=== PATIENT | male | born 1980 | race Caucasian/White ===

== ENCOUNTER 2019-06-10 19:43 | Inpatient (IN) | payer OTHER ==
[~2019-06-10 19:43] MED LIST: Iopamidol-370 76% 500 ML 1 ML ONE
--- NOTE | 2019-06-10 20:22 | CT ---
CT BRAIN WITHOUT CONTRAST: 06/10/19 HISTORY: Stroke alert. Left sided weakness. COMPARISON: None. FINDINGS: There is no acute hemorrhage or infarct. No midline shift or mass effect. Ventricular size and extra- axial CSF spaces are normal. Calvarium is intact. Paranasal sinuses and mastoids are clear. IMPRESSION: No acute intracranial abnormality. Code BRAVO - Dr. Calabrese at 8:15 p.m. POS: HOME
--- NOTE | 2019-06-10 20:44 | CT ---
CT ANGIOGRAM HEAD WITH CONTRAST CT ANGIOGRAM NECK WITH CONTRAST 06/10/19 HISTORY: Stroke. Left sided weakness and facial paralysis. COMPARISON: Reference is made to a CT of the brain same day. FINDINGS: The lung apices are clear. Transverse aorta is normal. No acute osseous abnormality of the cervical spine. Mild degenerative disc space disease at C4-5 and C5-6. The right vertebral artery is patent. The right vertebral artery is dominant. The left vertebral artery is patent. Basilar artery is patent. Right common carotid artery is patent. Internal carotid artery is patent. No hemodynamically signific ant stenosis per NASCET criteria. The left common carotid artery is patent. The internal carotid artery is patent. No hemodynamically s ignificant stenosis per NASCET criteria. The [place] is patent without stenosis, thrombosis nor aneurysm formation. The superior sagittal sinus is patent. The inferior sagittal sinus is patent. Transverse sinuses are patent. IMPRESSION: Normal CT angiogram of the head and neck. Code BRAVO Calabrese notified of the findings via telephone at 8:30 p.m. POS: HOME
--- NOTE | 2019-06-10 20:45 | RAD ---
CHEST ONE VIEW: 06/10/19 HISTORY: Chest pain. COMPARISON: None. FINDINGS: Lungs are clear. No pneumothorax or effusion. Cardiac silhouette and mediastinal contours are within normal limits. No acute osseous abnormality. IMPRESSION: No acute intrathoracic abnormality. POS: HOME
[2019-06-10 21:04] LABS: #Monocytes 0.4 thou/uL (0.11-0.59); #Neutrophils 2.4 thou/uL (1.40-6.50); %Basophils 0.5 % (0.0-1.0); %Eosinophils 0.5 % (0.0-10.0); %Lymphocytes 26.2 % (21.0-51.0); %Monocytes 10.4 % (0.0-10.0); %Neutrophils 62.4 % (42.0-75.0); Hemoglobin 14.9 g/dL (14.0-18.0); Mean Corpuscular HGB CONC 32.5 g/dL (32.0-36.0); Mean Corpuscular Hemoglobin 29.8 pg (27.0-31.0); Mean Corpuscular Volume 91.6 fL (78.0-98.0); Mean Platelet Volume 8.6 fL (7.4-10.4); Platelet Count 185 thou/uL (130-400); RBC Distribution Width 11.7 % (11.5-14.5); Red Blood Cell (RBC) Count 5.01 mill/uL (4.70-6.10); White Blood Cell (WBC) Count 3.9 thou/uL (4.8-10.8)
[2019-06-10 21:10] LABS: PTT 28.6 SEC (22.9-36.1); Prothrombin Time 13.1 sec (12.0-14.7)
[2019-06-10 21:26] LABS: ALT (SGPT) 189 U/L (8-55); AST (SGOT) 83 U/L (5-34); Albumin 4.2 g/dL (3.5-5.0); Alkaline Phosphatase 62 U/L (40-110); Anion Gap 14 mmol/L (10-20); BUN (Urea Nitrogen) 13 mg/dL (8.9-20.6); Bilirubin, Total 0.3 mg/dL (0.2-1.2); Calc. Creatinine Clearance 0 mL/min (70-130); Calcium 8.9 mg/dL (7.8-10.44); Carbon Dioxide 23 mmol/L (22-29); Chloride 104 mmol/L (98-107); Estimated GFR-MDRD Greater than 90; Globulin 3.4 g/dL (2.4-3.5); Glucose 94 mg/dL (70-105); Potassium 4.3 mmol/L (3.5-5.1); Protein, Total 7.6 g/dL (6.0-8.3); Sodium 137 mmol/L (136-145)
--- NOTE | 2019-06-10 21:44 | PDOC.HHP ---
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 He reports fall today with no LOC or head trauma after sided weakness became exaerbated, he was brought to ED, symptoms reportedly developed about 3 hours before presentation. In ED, given 325mg ASA, nitroglycerine, also given tPA for NIHSS of 6 and after reviewing risks and benefits with patient. patient to be admitted to CCU for observation after tPA and for covid rule out given other symptoms above. CT and CTA head performed with no signs of acute processes. ED Course: VITAL SIGNS SunJune 10, 2019 19:54 JP Helton Cory BP: 121/73 Pulse: 70 Resp: 16 Temp: 97.7 (Oral) Pain: 4 O2 sat: 97 on (Room Air) Time: 06/10/2019 19:54. Hospitalist ROS - Review of Systems Constitutional: reports: fever, chills, sweats, weakness Eyes: denies: pain, vision change ENT: denies: ear pain, mouth pain, mouth swelling, throat pain Respiratory: reports: cough. denies: shortness of breath, pleuritic pain Cardiovascular: denies: chest pain, palpitations, orthopnea Gastrointestinal: denies: nausea, vomiting, abdominal pain Genitourinary: denies: dysuria, frequency Musculoskeletal: denies: neck pain, shoulder pain, arm pain, back pain Skin: denies: rash, lesions Neurological: reports: weakness, numbness Other: L sided face and body weakness and numbness Hospitalist History - Past Medical History Other Medical History: seizure HCV multiple TIA - Past Surgical History Past Surgical History: reports: no pertinent history Other Surgical History: hernia, tonsillectomy - Family History Family History: reports: no pertinent history - Social History Smoking Status: Never smoker Alcohol: reports: None Drugs: reports: none - Exam General Appearance: NAD, awake alert Eye: PERRL, anicteric sclera ENT: normocephalic atraumatic, no oropharyngeal lesions, moist mucosa Neck: supple, symmetric, no JVD, no thyromegaly, no lymphadenopathy, no carotid bruit Heart: RRR, no murmur, no gallops, no rubs, normal peripheral pulses Respiratory: CTAB, no wheezes, no rales, no ronchi, normal chest expansion, no tachypnea, normal percussion Gastrointestinal: soft, non-tender, non-distended, normal bowel sounds, no palpable masses, no hepatomegaly, no splenomegaly, no bruit Extremities: no cyanosis, no clubbing, no edema Skin: normal turgor, no lesions, no rashes Neurological: cranial nerve grossly intact Neurological - other findings: L sided face, body numbness and weakness, 0/5 in all L sided 5/5 others Musculoskeletal: normal tone, normal strength, no muscle wasting Psychiatric: normal affect, normal behavior, A&O x 3 Hospitalist Results - Labs Result Diagrams: 06/10/19 20:49 06/10/19 20:49 Lab results: WBC 3.9 thou/uL (4.8-10.8) L 06/10/19 20:49 Hgb 14.9 g/dL (14.0-18.0) 06/10/19 20:49 Hct 45.9 % (42.0-52.0) 06/10/19 20:49 MCV 91.6 fL (78.0-98.0) 06/10/19 20:49 Plt Count 185 thou/uL (130-400) 06/10/19 20:49 Neutrophils % 62.4 % (42.0-75.0) 06/10/19 20:49 Sodium 137 mmol/L (136-145) 06/10/19 20:49 Potassium 4.3 mmol/L (3.5-5.1) 06/10/19 20:49 Chloride 104 mmol/L (98-107) 06/10/19 20:49 Carbon Dioxide 23 mmol/L (22-29) 06/10/19 20:49 BUN 13 mg/dL (8.9-20.6) 06/10/19 20:49 Creatinine 0.89 mg/dL (0.7-1.3) 06/10/19 20:49 Glucose 94 mg/dL (70-105) 06/10/19 20:49 Lactic Acid 1.2 mmol/L (0.5-2.2) 06/10/19 20:49 Calcium 8.9 mg/dL (7.8-10.44) 06/10/19 20:49 Total Bilirubin 0.3 mg/dL (0.2-1.2) 06/10/19 20:49 AST 83 U/L (5-34) H 06/10/19 20:49 ALT 189 U/L (8-55) H 06/10/19 20:49 Alkaline Phosphatase 62 U/L (40-110) 06/10/19 20:49 Troponin I 0.031 ng/mL (< 0.028) H 06/10/19 20:49 Serum Total Protein 7.6 g/dL (6.0-8.3) 06/10/19 20:49 Albumin 4.2 g/dL (3.5-5.0) 06/10/19 20:49 - EKG Interpretation EKG: NSR rate [address] changes Hospitalist H&P A/P - Plan Plan: 39M with PMH TIA, HCV admitted for: # acute ischemic stroke - NIHSS 6 on arrival, had previouslstroke with same symptoms L sided weakness and numbness 3 years ago but had recovered, now presents with viremia symptoms and L sided weakness and numbness, got tPA in ED now with minimal improvement in face, can open eye etc, but still 0/5 in L sided weakness and numbness, will admit to CCU for close observation - admit to CCU - post stroke order set - MRI, statin, asa - consult neurology, - TTE - stroke team consult # viremia, fever, chills, body aches - covid exposure at unit, suspect will be covid positive but test is pending - follow covid test - full precautions # elevated troponin - mild, workup as above, trend troponins, maybe due to viral event or stroke # history of HCV, TIA - noted DVT ppx - as allowed by post tpa sed GI ppx full code
[2019-06-10 21:46] LABS: CKMB 0.6 ng/mL (0-6.6)
[2019-06-10] MEDS ORDERED: Ondansetron PF 4 MG/2 ML Vial IVP PRN (21:52)
[2019-06-10] MEDS ORDERED: Promethazine HCl 12.5 MG in Sodium Chloride 0.9% 50 ML IVPB PRN (21:52)
[2019-06-10] MEDS ORDERED: Labetalol HCl 100 MG/20 ML VIAL SLOW IVP PRN (22:27)
[2019-06-10] MEDS ORDERED: Docusate 100 MG CAP PO PRN (22:27)
[2019-06-10] MEDS ORDERED: hydrALAZINE 20 MG/ML VIAL SLOW IVP PRN (22:27)
[2019-06-10] MEDS ORDERED: niCARdipine 25 MG in Sodium Chloride 0.9% 250 ML 240 ML IVPB PRN (22:27)
[2019-06-10] MEDS ORDERED: Mag-Al 1200 mg/1200 mg/30 ML UDCUP PO PRN (22:27)
[2019-06-10] MEDS ORDERED: Milk Of Magnesia 30 ML UDCUP PO PRN (22:27)
[2019-06-10] MEDS: Sodium Chloride 0.9% 1,000 ML IV SCH (22:57)
[2019-06-10] MEDS: Communication Order-Pharmacy FS SCH (23:51)
[2019-06-11] MEDS: Acetaminophen 325 MG TAB PO PRN ×2 (04:45→20:28)
--- NOTE | 2019-06-11 08:52 | CON ---
DATE OF CONSULTATION: 06/11/2019 REASON FOR CONSULTATION: ICU management. HISTORY OF PRESENT ILLNESS: This is a 39-year-old, who was brought to the hospital with left-sided weakness, left-sided facial weakness, and left leg weakness. He was actually given tPA for supposed stroke. He says that he began having an intense ammonia smell in his nose few days ago, now cannot smell and cannot taste. He is concerned that he might have a coronavirus. He has not had any documented fever, but says he felt like he was cold [facility] a couple of days ago. Apparently, COVID-19 has been noted in his penitent[facility] unit. PAST MEDICAL HISTORY: 1. Stroke. 2. Seizure disorder. 3. Hepatitis C. PAST SURGICAL HISTORY: Hernia repair and tonsillectomy. FAMILY MEDICAL HISTORY: Unremarkable. SOCIAL HISTORY: Does not smoke. Does not consume alcohol. Does not use illicit drugs. REVIEW OF SYSTEMS: Twelve-point review of systems is otherwise negative. PHYSICAL EXAMINATION: VITAL SIGNS: Temperature 97, pulse 63, blood pressure 113/70, and O2 saturation 96%. A 24-hour intake 421 and output 575. GENERAL: He is awake, alert, and in no distress. He talks without any limitations. HEENT: Pupils are reactive. Sclerae are anicteric. Oropharynx clear. Smiles appropriately. No noted facial weakness. NECK: No adenopathy or JVD. LUNGS: Clear to auscultation. No wheezing or rhonchi. CARDIAC: S1 and S2. Regular without audible murmur. ABDOMEN: Soft and nontender to palpation. EXTREMITIES: No clubbing, cyanosis, or edema. NEUROLOGIC: He has difficulty moving his left arm and left leg, very difficult to tell how hard he is actually trying during this examination process. LABORATORY DATA: His chest x-ray shows no mass, effusion, or infiltrate. Labs; sodium 137, potassium 4.3, chloride 104, CO2 of 23, BUN 13, creatinine 0.8, AST 83, and ALT 189. Troponin 0.031. INR 1.0 and PTT 28.6. White blood cell count 3.9, hematocrit 45.9, and platelet count 185. ASSESSMENT: 1. Presumed stroke. 2. Rule out COVID-19 infection. 3. Chronic hepatitis C. 4. Hypertension. PLAN: 1. The patient will be watched in the ICU for 24 hours given he just received tPA. 2. If his COVID test comes back negative, then respiratory isolation will be discontinued. 3. Hypertension management and stroke management per stroke team. Job ID: [id number]
[2019-06-11] MEDS ORDERED: Atorvastatin Calcium 40 MG TAB PO SCH (09:00)
[2019-06-11] MEDS: Polyethylene Glycol 3350 17 GM Packet PO SCH (09:18)
[2019-06-11] MEDS: levETIRAcetam 500 MG TAB PO SCH ×2 (09:18→20:00)
--- NOTE | 2019-06-11 11:15 | PDOC.HOSPP ---
- Subjective Encounter Date: 06/11/19 Encounter Time: 10:30 Subjective: Patient seen and examined. No overnight events, pt has left side weakness - Objective Vital Signs & Weight: Vital Signs (12 hours) Temp Pulse Ox 06/11/19 08:00 97 F L 100 06/11/19 07:00 97 F L 06/11/19 04:00 97.6 F Weight Weight 217 lb 9.54 oz Most Recent Monitor Data Heart Rate from ECG 51 NIBP 113/73 NIBP BP-Mean 86 Respiration from ECG 12 SpO2 97 I&O: 06/10/19 06/11/19 06/12/19 06:59 06:59 06:59 Intake Total 421 120 Output Total 575 Balance -154 120 Result Diagrams: 06/10/19 20:49 06/10/19 20:49 Additional Labs: Accuchecks 06/10/19 20:08 POC Glucose 92 Radiology Reviewed by me: Yes EKG Reviewed by me: Yes Hospitalist ROS - Review of Systems Eyes: denies: pain, vision change, conjunctivae inflammation, eyelid inflammation, redness, other ENT: denies: ear pain, ear discharge, nose pain, nose discharge, nose congestion , mouth pain, mouth swelling, throat pain, throat swelling, other Respiratory: denies: cough, dry, shortness of breath, hemoptysis, SOB with excertion, pleuritic pain, sputum, wheezing, other Cardiovascular: denies: chest pain, palpitations, orthopnea, paroxysmal noc. dyspnea, edema, light headedness, other Gastrointestinal: denies: nausea, vomiting, abdominal pain, diarrhea, constipation, melena, hematochezia, other Genitourinary: denies: dysuria, frequency, incontinence, hematuria, retention, other Musculoskeletal: denies: neck pain, shoulder pain, arm pain, back pain, hand pain, leg pain, foot pain, other Skin: denies: rash, lesions, sandra, bruising, other Neurological: reports: weakness. denies: numbness, incoordination, change in speech, confusion, seizures, other - Medication Medications: Active Medications Generic Name Dose Route Start Last Admin Trade Name Freq PRN Reason Stop Dose Admin Acetaminophen 650 mg 06/10/19 22:27 06/11/19 04:45 Tylenol PO 650 mg Q6H PRN Administration Headache/Fever/Mild Pain (1-3) Sodium Chloride 1,000 mls @ 50 mls/hr 06/10/19 22:30 06/10/19 22:57 Normal Saline 0.9% IV 1,000 mls .Q20H YULIET Administration Levetiracetam 1,500 mg 06/11/19 09:00 06/11/19 09:18 Keppra PO 1,500 mg BID YULIET Administration Miscellaneous Information 1 each 06/10/19 22:27 06/10/19 23:51 Communication Order-Pharmacy FS 06/11/19 22:28 Not Given NOW YULIET Pantoprazole Sodium 40 mg 06/11/19 09:00 06/11/19 09:18 Protonix PO 40 mg DAILY YULIET Administration Polyethylene Glycol 17 gm 06/11/19 09:00 06/11/19 09:18 Miralax PO 17 gm DAILY YULIET Administration - Exam General Appearance: NAD, awake alert Eye: PERRL, anicteric sclera ENT: normocephalic atraumatic, no oropharyngeal lesions Neck: supple, symmetric, no JVD, no thyromegaly Heart: RRR, no murmur, no gallops, no rubs Respiratory: CTAB, no wheezes, no rales, no ronchi Gastrointestinal: soft, non-tender, non-distended, normal bowel sounds Extremities: no cyanosis, no clubbing, no edema Skin: normal turgor, no lesions Neurological: hemiplegia Neurological - other findings: left side weakness noted both upper and lower limb Musculoskeletal: normal tone, normal strength Psychiatric: normal affect, normal behavior Hosp A/P (1) CVA (cerebral vascular accident) Code(s): I63.9 - CEREBRAL INFARCTION, UNSPECIFIED Status: Acute Qualifiers: Precerebral and cerebral artery: middle cerebral artery Laterality of affected vessel: right (2) Hypertension Code(s): I10 - ESSENTIAL (PRIMARY) HYPERTENSION Status: Chronic Qualifiers: Hypertension type: essential hypertension Qualified Code(s): I10 - Essential (primary) hypertension (3) Chronic hepatitis C Code(s): B18.2 - CHRONIC VIRAL HEPATITIS C Status: Chronic Qualifiers: Hepatic coma status: without hepatic coma Qualified Code(s): B18.2 - Chronic viral hepatitis C (4) Abnormal LFTs Code(s): R94.5 - ABNORMAL RESULTS OF LIVER FUNCTION STUDIES Status: Chronic - Plan old records reviewed/req rule out covid-19 observe in ICU for 2 hours post Tpa Neurology has been consulted stroke team MRI and echo medication reviewed and continue to provide symptomatic care
[2019-06-11] MEDS ORDERED: Loperamide HCl 2 MG CAP PO PRN (11:18)
[2019-06-11] MEDS ORDERED: Calcium Carbonate 500 MG ChewTAB PO PRN (11:18)
[2019-06-11] MEDS ORDERED: Cepastat Lozenges 1 LOZ PO PRN (11:18)
[2019-06-11] MEDS ORDERED: Ondansetron ODT 4 MG TAB PO PRN (11:18)
[2019-06-11] MEDS ORDERED: Senokot S 8.6-50 MG TAB PO PRN (11:18)
[2019-06-11] MEDS ORDERED: Loratadine 10 MG TAB PO PRN (11:18)
[2019-06-11] MEDS ORDERED: Benzonatate 100 MG CAP PO PRN (11:18)
[2019-06-11] MEDS ORDERED: Sodium Chloride 0.65% Nasal 44 ML BOT EA NARE PRN (11:18)
--- NOTE | 2019-06-11 11:39 | CT ---
CT BRAIN WITHOUT CONTRAST: Date: 06/11/2019 HISTORY: Left-sided weakness and facial paralysis, acute stroke. Acute CVA, post TPA. FINDINGS: Comparison made with exam of previous day. No evidence of acute infarct, hemorrhage, midline shift, or abnormal extra-axial fluid collections ar e seen. The ventricular size is appropriate and the basilar cisterns are patent. The bony calvarium i s intact. The visualized paranasal sinuses and mastoid air cells are well aerated. IMPRESSION: No CT evidence of acute intracranial process. POS: [facility]
[2019-06-11] MEDS: Sodium Chloride 0.9% 1,000 ML IV SCH (17:04)
[2019-06-11 18:33] LABS: SARS-CoV-2 MS2 Positive; SARS-CoV-2 N Gene Positive; SARS-CoV-2 S Gene Positive; SARS-CoV-2 orf1ab Positive
[2019-06-11] MEDS: Atorvastatin Calcium 40 MG TAB PO SCH (20:00)
[2019-06-11] MEDS: Communication Order-Pharmacy FS SCH (20:00)
[2019-06-11] MEDS: carBAMazepine 200 MG TAB PO SCH (20:00)
[2019-06-12 04:51] LABS: #Eosinphils 0.1 thou/uL (0.0-0.7); #Lymphocytes 1.4 thou/uL (1.20-3.40); #Monocytes 0.3 thou/uL (0.11-0.59); #Neutrophils 1.5 thou/uL (1.40-6.50); %Basophils 0.2 % (0.0-1.0); %Eosinophils 3.1 % (0.0-10.0); %Lymphocytes 42.7 % (21.0-51.0); %Monocytes 8.4 % (0.0-10.0); %Neutrophils 45.6 % (42.0-75.0); Hemoglobin 14.8 g/dL (14.0-18.0); Mean Corpuscular HGB CONC 32.2 g/dL (32.0-36.0); Mean Corpuscular Hemoglobin 29.8 pg (27.0-31.0); Mean Corpuscular Volume 92.6 fL (78.0-98.0); Mean Platelet Volume 8.6 fL (7.4-10.4); Platelet Count 177 thou/uL (130-400); RBC Distribution Width 11.8 % (11.5-14.5); Red Blood Cell (RBC) Count 4.94 mill/uL (4.70-6.10); White Blood Cell (WBC) Count 3.4 thou/uL (4.8-10.8)
[2019-06-12 04:55] LABS: Hemoglobin A1c 4.9 % (4.0-6.0)
[2019-06-12 05:15] LABS: ALT (SGPT) 161 U/L (8-55); AST (SGOT) 67 U/L (5-34); Albumin 3.9 g/dL (3.5-5.0); Alkaline Phosphatase 56 U/L (40-110); Anion Gap 11 mmol/L (10-20); BUN (Urea Nitrogen) 11 mg/dL (8.9-20.6); Bilirubin, Total 0.5 mg/dL (0.2-1.2); Calc. Creatinine Clearance 176 mL/min (70-130); Calcium 8.6 mg/dL (7.8-10.44); Carbon Dioxide 22 mmol/L (22-29); Cardiac Risk 4.7 (Less than 4.5); Chloride 110 mmol/L (98-107); Cholesterol 137 mg/dl (< 200 Desired); Estimated GFR-MDRD Greater than 90; Glucose 80 mg/dL (70-105); HDL Cholesterol 29 mg/dL (>60 Neg Risk); LDL Cholesterol, Calculated 94 mg/dL; Potassium 4.4 mmol/L (3.5-5.1); Protein, Total 6.9 g/dL (6.0-8.3); Sodium 139 mmol/L (136-145); Triglycerides 69 mg/dL (Less than 150)
--- NOTE | 2019-06-12 09:02 | PRG ---
DATE OF SERVICE: 06/12/2019 SUBJECTIVE: Mr. Lei's COVID test came back positive. He has minimal respiratory symptoms. OBJECTIVE: VITAL SIGNS: Temperature 98, pulse 53, respirations 18, O2 saturation 98% on room air, and blood pressure 120/68. Exam otherwise unchanged. ASSESSMENT: 1. COVID-19 without pneumonia. 2. Stroke symptoms. PLAN: Continuing supportive care. I would recommend inquiring with Neurology concerning anticoagulation in this patient as he is going to be at risk for further thrombotic episodes with COVID-19. Job ID: [id number]
[2019-06-12] MEDS: Aspirin 325 mg Enteric Coated Tablet PO SCH (09:19)
[2019-06-12] MEDS: Ascorbic Acid 500 mg Chewable Tablet PO SCH (09:19)
[2019-06-12] MEDS: Enoxaparin Sodium 40 MG/0.4 ML SYRINGE SC SCH (09:19)
[2019-06-12] MEDS: Polyethylene Glycol 3350 17 GM Packet PO SCH (09:20)
[2019-06-12] MEDS: Zinc Sulfate 220 MG CAP PO SCH (09:20)
[2019-06-12] MEDS: levETIRAcetam 500 MG TAB PO SCH ×2 (09:20→21:25)
--- NOTE | 2019-06-12 09:47 | PDOC.HOSPP ---
- Subjective Encounter Date: 06/12/19 Encounter Time: 07:30 Subjective: Patient seen and examined. No new complaints. No overnight events - Objective Vital Signs & Weight: Vital Signs (12 hours) Temp Pulse Resp BP Pulse Ox 06/12/19 07:32 98 06/12/19 00:15 98.0 F 53 L 18 120/68 98 Weight Weight 217 lb 9.54 oz Most Recent Monitor Data Heart Rate from ECG 49 NIBP 111/69 NIBP BP-Mean 83 Respiration from ECG 16 SpO2 96 I&O: 06/11/19 06/12/19 06/13/19 06:59 06:59 06:59 Intake Total 421 1549 Output Total 575 1455 Balance -154 94 Result Diagrams: 06/12/19 04:28 06/12/19 04:28 EKG Reviewed by me: Yes Hospitalist ROS - Review of Systems Constitutional: denies: fever, chills, sweats, weakness, malaise, other ENT: denies: ear pain, ear discharge, nose pain, nose discharge, nose congestion , mouth pain, mouth swelling, throat pain, throat swelling, other Respiratory: denies: cough, dry, shortness of breath, hemoptysis, SOB with excertion, pleuritic pain, sputum, wheezing, other Cardiovascular: denies: chest pain, palpitations, orthopnea, paroxysmal noc. dyspnea, edema, light headedness, other Gastrointestinal: denies: nausea, vomiting, abdominal pain, diarrhea, constipation, melena, hematochezia, other Genitourinary: denies: dysuria, frequency, incontinence, hematuria, retention, other Musculoskeletal: denies: neck pain, shoulder pain, arm pain, back pain, hand pain, leg pain, foot pain, other Skin: denies: rash, lesions, sandra, bruising, other Neurological: reports: weakness. denies: numbness, incoordination, change in speech, confusion, seizures, other - Medication Medications: Active Medications Generic Name Dose Route Start Last Admin Trade Name Freq PRN Reason Stop Dose Admin Acetaminophen 650 mg 06/10/19 22:27 06/11/19 20:28 Tylenol PO 650 mg Q6H PRN Administration Headache/Fever/Mild Pain (1-3) Ascorbic Acid 1,000 mg 06/12/19 09:00 05/07/20 09:19 Vitamin C PO 1,000 mg DAILY YULIET Administration Aspirin 325 mg 06/12/19 09:00 06/12/19 09:19 Ecotrin PO 325 mg DAILY YULIET Administration Atorvastatin Calcium 40 mg 06/11/19 21:00 06/11/19 20:00 Lipitor PO 40 mg HS YULIET Administration Carbamazepine 200 mg 06/11/19 21:00 06/11/19 20:00 Tegretol PO 200 mg QPM YULIET Administration Enoxaparin Sodium 40 mg 06/12/19 09:00 06/12/19 09:19 Lovenox SC 40 mg 0900 YULIET Administration Levetiracetam 1,500 mg 06/11/19 09:00 06/12/19 09:20 Keppra PO 1,500 mg BID YULIET Administration Pantoprazole Sodium 40 mg 06/11/19 09:00 06/12/19 09:20 Protonix PO 40 mg DAILY YULIET Administration Polyethylene Glycol 17 gm 06/11/19 09:00 06/12/19 09:20 Miralax PO 17 gm DAILY YULIET Administration Sodium Chloride 10 ml 06/10/19 22:05 06/12/19 09:19 Flush - Normal Saline IVF 10 ml PRN PRN Administration Saline Flush Zinc Sulfate 220 mg 06/12/19 09:00 06/12/19 09:20 Zinc Sulfate PO 220 mg DAILY YULIET Administration - Exam General Appearance: NAD, awake alert Eye: PERRL, anicteric sclera ENT: normocephalic atraumatic, no oropharyngeal lesions Neck: supple, symmetric, no JVD, no thyromegaly Heart: RRR, no murmur, no gallops, no rubs Respiratory: CTAB, no wheezes, no rales, no ronchi Gastrointestinal: soft, non-tender, non-distended, normal bowel sounds Extremities: no cyanosis, no clubbing, no edema Skin: normal turgor, no lesions Neurological: hemiplegia Musculoskeletal: normal tone, normal strength Psychiatric: normal affect, normal behavior Hosp A/P (1) CVA (cerebral vascular accident) Code(s): I63.9 - CEREBRAL INFARCTION, UNSPECIFIED Status: Acute Qualifiers: Precerebral and cerebral artery: middle cerebral artery Laterality of affected vessel: right (2) COVID-19 virus infection Code(s): U07.1 - COVID-19 Status: Acute (3) Hypertension Code(s): I10 - ESSENTIAL (PRIMARY) HYPERTENSION Status: Chronic Qualifiers: Hypertension type: essential hypertension Qualified Code(s): I10 - Essential (primary) hypertension (4) Chronic hepatitis C Code(s): B18.2 - CHRONIC VIRAL HEPATITIS C Status: Chronic Qualifiers: Hepatic coma status: without hepatic coma Qualified Code(s): B18.2 - Chronic viral hepatitis C (5) Abnormal LFTs Code(s): R94.5 - ABNORMAL RESULTS OF LIVER FUNCTION STUDIES Status: Chronic - Plan old records reviewed/req, PT/OT, DVT proph w/lovenox rule out covid-19 observe in ICU for 2 hours post Tpa Neurology has been consulted stroke team MRI and echo medication reviewed and continue to provide symptomatic care 06/12/19 MRI and echo pending but due to covid-19 positive, unsure when it will be done neuro has to see today continue medical therapy for now on asa, lipitor stroke team his BP is acceptable without meds covid-19 deras he is asymptomatic, will give vitamic C and zinc sulfate
--- NOTE | 2019-06-12 16:14 | CON ---
DATE OF CONSULTATION: 06/12/2019 REASON FOR CONSULTATION: Left-sided weakness. CONSULTING SERVICE: Neurology. HISTORY OF PRESENT ILLNESS: Mr. Spenser Lei is a 39-year-old male with history significant for prior CVAs with residual left-sided weakness, who presented to the emergency room with worsening weakness of left face and left leg. He presented to the emergency room on 06/10/2019 around 1800 hours. He has history of CVA in 2017 and was on wheelchair for 2-1/2 years and then was able to walk after therapy. Per the patient, he had a fall and after that, his weakness on the left side worsened. In the emergency room, he was given aspirin and nitroglycerin, because of chest pain and was also given tPA, since the NIH stroke scale was 6 after reviewing the risks and benefits, he was admitted to CCU for observation and also tested for COVID, which came back positive. CT head and the CTA of the head were also performed, which were significant intracranial findings. Repeat head CT did not show any bleed and he was transferred to the floor. Neurology was consulted to help with stroke management. - Objective Vital Signs & Weight: Vital Signs (12 hours) Temp Pulse Resp BP Pulse Ox 06/12/19 07:32 98 06/12/19 00:15 98.0 F 53 L 18 120/68 98 Weight Weight 217 lb 9.54 oz Most Recent Monitor Data Heart Rate from ECG 49 NIBP 111/69 NIBP BP-Mean 83 Respiration from ECG 16 SpO2 96 I&O: 06/11/19 06/12/19 06/13/19 06:59 06:59 06:59 Intake Total 421 1549 Output Total 575 1455 Balance -154 94 Result Diagrams: 06/12/19 04:28 06/12/19 04:28 EKG Reviewed by me: Yes - Review of Systems Constitutional: denies: fever, chills, sweats, weakness, malaise, other ENT: denies: ear pain, ear discharge, nose pain, nose discharge, nose congestion , mouth pain, mouth swelling, throat pain, throat swelling, other Respiratory: denies: cough, dry, shortness of breath, hemoptysis, SOB with excertion, pleuritic pain, sputum, wheezing, other Cardiovascular: denies: chest pain, palpitations, orthopnea, paroxysmal noc. dyspnea, edema, light headedness, other Gastrointestinal: denies: nausea, vomiting, abdominal pain, diarrhea, constipation, melena, hematochezia, other Genitourinary: denies: dysuria, frequency, incontinence, hematuria, retention, other Musculoskeletal: denies: neck pain, shoulder pain, arm pain, back pain, hand pain, leg pain, foot pain, other Skin: denies: rash, lesions, sandra, bruising, other Neurological: reports: weakness. denies: numbness, incoordination, change in speech, confusion, seizures, other - Medication Medications: Active Medications Generic Name Dose Route Start Last Admin Trade Name Freq PRN Reason Stop Dose Admin Acetaminophen 650 mg 06/10/19 22:27 06/11/19 20:28 Tylenol PO 650 mg Q6H PRN Administration Headache/Fever/Mild Pain (1-3) Ascorbic Acid 1,000 mg 06/12/19 09:00 06/12/19 09:19 Vitamin C PO 1,000 mg DAILY YULIET Administration Aspirin 325 mg 06/12/19 09:00 06/12/19 09:19 Ecotrin PO 325 mg DAILY YULIET Administration Atorvastatin Calcium 40 mg 06/11/19 21:00 06/11/19 20:00 Lipitor PO 40 mg HS YULIET Administration Carbamazepine 200 mg 06/11/19 21:00 06/11/19 20:00 Tegretol PO 200 mg QPM YULIET Administration Enoxaparin Sodium 40 mg 06/12/19 09:00 06/12/19 09:19 Lovenox SC 40 mg 0900 YULIET Administration Levetiracetam 1,500 mg 06/11/19 09:00 06/12/19 09:20 Keppra PO 1,500 mg BID YULIET Administration Pantoprazole Sodium 40 mg 06/11/19 09:00 06/12/19 09:20 Protonix PO 40 mg DAILY YULIET Administration Polyethylene Glycol 17 gm 06/11/19 09:00 06/12/19 09:20 Miralax PO 17 gm DAILY YULIET Administration Sodium Chloride 10 ml 06/10/19 22:05 06/12/19 09:19 Flush - Normal Saline IVF 10 ml PRN PRN Administration Saline Flush Zinc Sulfate 220 mg 06/12/19 09:00 06/12/19 09:20 Zinc Sulfate PO 220 mg DAILY YULIET Administration PAST MEDICAL HISTORY: Seizure disorder, atrial fibrillation, prior stroke. PAST SURGICAL HISTORY: Hernia repair, tonsillectomy. FAMILY HISTORY: Significant for cancer in both his maternal and paternal side. SOCIAL HISTORY: He denies smoking, alcohol, or illegal drug use. PHYSICAL EXAMINATION: HEENT: Normocephalic, atraumatic. NECK: Supple. CARDIOVASCULAR: Regular rate and rhythm. CHEST: Clear. ABDOMEN: Soft. NEUROLOGICAL: Mental status; the patient is alert and oriented to person, place, and time. Cranial nerves; mild left facial droop. Pupils are equal and reactive to light. Face symmetric. Tongue midline. Moves neck in both direction. Hearing is intact. Motor strength 1/5 in the left upper and lower extremities, 5/5 in the right upper and lower extremities. Muscle tone is increased. Gait could not be tested due to the patient's safety reasons. DIAGNOSTIC STUDIES: Data reviewed. I reviewed the CT scan, which did not reveal any acute intracranial findings. CBC and CMP were essentially unremarkable. ASSESSMENT AND PLAN: A 39-year-old male with medical history significant for prior cerebrovascular accident and COVID positive, presented with acute ischemic stroke, status post tPA. There is minimal improvement now and he is able move his fingers and toes on the left side. Continue neuro checks every 4 hours. MRI brain and MRA of the head and neck when stable . Consider echocardiography to rule out cardioembolic source. Continue aspirin and statin for secondary stroke prevention. Continue home medications. Continue medical management per Primary Team. PT/OT/Speech. Consider cardiology input for persistent bradycardia. Thank you for the consult. Job ID: [id number] [facility]
[2019-06-12] MEDS: carBAMazepine 200 MG TAB PO SCH ×2 (21:25→21:46)
[2019-06-12] MEDS: Atorvastatin Calcium 40 MG TAB PO SCH (21:25)
[2019-06-12] MEDS ORDERED: carBAMazepine 200 MG TAB PO SCH (22:15)
[2019-06-13 04:55] LABS: #Eosinphils 0.1 thou/uL (0.0-0.7); #Lymphocytes 1.6 thou/uL (1.20-3.40); #Monocytes 0.3 thou/uL (0.11-0.59); %Basophils 1.1 % (0.0-1.0); %Eosinophils 2.9 % (0.0-10.0); %Monocytes 8.3 % (0.0-10.0); %Neutrophils 47.8 % (42.0-75.0); Hemoglobin 15.2 g/dL (14.0-18.0); Mean Corpuscular HGB CONC 33.5 g/dL (32.0-36.0); Mean Corpuscular Hemoglobin 30.8 pg (27.0-31.0); Mean Platelet Volume 8.3 fL (7.4-10.4); Platelet Count 162 thou/uL (130-400); RBC Distribution Width 11.7 % (11.5-14.5); Red Blood Cell (RBC) Count 4.92 mill/uL (4.70-6.10); White Blood Cell (WBC) Count 4.1 thou/uL (4.8-10.8)
[2019-06-13 05:16] LABS: Anion Gap 14 mmol/L (10-20); BUN (Urea Nitrogen) 14 mg/dL (8.9-20.6); Calc. Creatinine Clearance 158 mL/min (70-130); Calcium 8.7 mg/dL (7.8-10.44); Carbon Dioxide 22 mmol/L (22-29); Chloride 109 mmol/L (98-107); Estimated GFR-MDRD Greater than 90; Glucose 85 mg/dL (70-105); Magnesium 1.9 mg/dL (1.6-2.6); Sodium 141 mmol/L (136-145)
[2019-06-13] MEDS: Ascorbic Acid 500 mg Chewable Tablet PO SCH (09:11)
[2019-06-13] MEDS: levETIRAcetam 500 MG TAB PO SCH ×2 (09:11→20:29)
[2019-06-13] MEDS: Aspirin 325 mg Enteric Coated Tablet PO SCH (09:11)
[2019-06-13] MEDS: Enoxaparin Sodium 40 MG/0.4 ML SYRINGE SC SCH (09:11)
[2019-06-13] MEDS: Polyethylene Glycol 3350 17 GM Packet PO SCH ×2 (09:11→09:41)
[2019-06-13] MEDS: Zinc Sulfate 220 MG CAP PO SCH (09:11)
--- NOTE | 2019-06-13 16:50 | PDOC.HOSPP ---
- Subjective Encounter Date: 06/13/19 Subjective: No new events over the past 24 hours. - Objective Vital Signs & Weight: Vital Signs (12 hours) Temp Pulse Pulse Pulse Resp BP BP 06/13/19 12:45 97.8 F 62 18 06/13/19 12:07 72 75 132/75 136/74 06/13/19 09:21 97.0 F L 60 18 06/13/19 09:00 06/13/19 07:16 BP Pulse Ox Pulse Ox Pulse Ox 06/13/19 12:45 131/74 96 06/13/19 12:07 97 96 06/13/19 09:21 136/74 99 06/13/19 09:00 99 06/13/19 07:16 97 Weight Weight 215 lb Most Recent Monitor Data Heart Rate from ECG 49 NIBP 111/69 NIBP BP-Mean 83 Respiration from ECG 16 SpO2 96 I&O: 06/12/19 06/13/19 06/14/19 06:59 06:59 06:59 Intake Total 1549 630 Output Total 1455 1550 Balance 94 -920 Result Diagrams: 06/13/19 04:44 06/13/19 04:44 Hospitalist ROS - Medication Medications: Active Medications Generic Name Dose Route Start Last Admin Trade Name Freq PRN Reason Stop Dose Admin Acetaminophen 650 mg 06/10/19 22:27 06/11/19 20:28 Tylenol PO 650 mg Q6H PRN Administration Headache/Fever/Mild Pain (1-3) Ascorbic Acid 1,000 mg 06/12/19 09:00 06/13/19 09:11 Vitamin C PO 1,000 mg DAILY YULIET Administration Aspirin 325 mg 06/12/19 09:00 06/13/19 09:11 Ecotrin PO 325 mg DAILY YULIET Administration Atorvastatin Calcium 40 mg 06/11/19 21:00 06/12/19 21:25 Lipitor PO 40 mg HS YULIET Administration Enoxaparin Sodium 40 mg 06/12/19 09:00 06/13/19 09:11 Lovenox SC 40 mg 0900 YULIET Administration Levetiracetam 1,500 mg 06/11/19 09:00 06/13/19 09:11 Keppra PO 1,500 mg BID YULIET Administration Pantoprazole Sodium 40 mg 06/11/19 09:00 06/13/19 09:11 Protonix PO 40 mg DAILY YULIET Administration Polyethylene Glycol 17 gm 06/11/19 09:00 06/13/19 09:41 Miralax PO Not Given DAILY YULIET Sodium Chloride 10 ml 06/10/19 22:05 06/12/19 21:25 Flush - Normal Saline IVF 10 ml PRN PRN Administration Saline Flush Zinc Sulfate 220 mg 06/12/19 09:00 06/13/19 09:11 Zinc Sulfate PO 220 mg DAILY YULIET Administration - Exam General Appearance: awake alert ENT: normocephalic atraumatic Neck: supple Heart: RRR Respiratory: normal chest expansion, no tachypnea Gastrointestinal: soft Neurological - other findings: Left facial droop and left upper extremity weakness 1 out of 5. Hosp A/P (1) COVID-19 virus infection Code(s): U07.1 - COVID-19 Status: Acute (2) CVA (cerebral vascular accident) Code(s): I63.9 - CEREBRAL INFARCTION, UNSPECIFIED Status: Acute Qualifiers: Precerebral and cerebral artery: middle cerebral artery Laterality of affected vessel: right (3) Hypertension Code(s): I10 - ESSENTIAL (PRIMARY) HYPERTENSION Status: Chronic Qualifiers: Hypertension type: essential hypertension Qualified Code(s): I10 - Essential (primary) hypertension - Plan CT angiogram of the head and neck and repeat CT scan of the head did not show any acute abnormalities. MRI of the brain was not performed due to call with positive status. Repeat CT scan of the head tomorrow. Patient still complaining of weakness. Continue medical management with aspirin and atorvastatin. His blood pressure is stable. PT and OT evaluation. Echocardiogram.
[2019-06-13] MEDS: Atorvastatin Calcium 40 MG TAB PO SCH (20:29)
[2019-06-13] MEDS: carBAMazepine 200 MG TAB PO SCH (20:30)
[2019-06-14] MEDS: Polyethylene Glycol 3350 17 GM Packet PO SCH (08:49)
[2019-06-14] MEDS: Aspirin 325 mg Enteric Coated Tablet PO SCH (08:49)
[2019-06-14] MEDS: Enoxaparin Sodium 40 MG/0.4 ML SYRINGE SC SCH (08:49)
[2019-06-14] MEDS: Ascorbic Acid 500 mg Chewable Tablet PO SCH (08:49)
[2019-06-14] MEDS: levETIRAcetam 500 MG TAB PO SCH ×2 (08:50→21:09)
[2019-06-14] MEDS: Zinc Sulfate 220 MG CAP PO SCH (08:50)
--- NOTE | 2019-06-14 13:54 | PDOC.HOSPP ---
- Subjective Encounter Date: 06/14/19 Encounter Time: 09:00 Subjective: no overnight events. this morning, complains of new onset dry cough and lost of taste and smell for the past week. otherwise no complaints. - Objective Vital Signs & Weight: Vital Signs (12 hours) Temp Pulse Pulse Resp BP BP BP 06/14/19 12:18 72 134/76 06/14/19 08:45 97.4 F L 57 L 18 135/61 06/14/19 04:00 97.1 F L 52 L 18 116/70 Pulse Ox Pulse Ox 06/14/19 12:18 98 06/14/19 08:45 96 06/14/19 04:00 99 Weight Weight 215 lb Most Recent Monitor Data Heart Rate from ECG 49 NIBP 111/69 NIBP BP-Mean 83 Respiration from ECG 16 SpO2 96 I&O: 06/13/19 06/14/19 06/15/19 06:59 06:59 06:59 Intake Total 630 850 Output Total 4700 4415 Balance -920 575 Result Diagrams: 06/13/19 04:44 06/13/19 04:44 Hospitalist ROS - Review of Systems Constitutional: denies: fever, chills, sweats, weakness, malaise, other Respiratory: denies: cough, dry, shortness of breath, hemoptysis, SOB with excertion, pleuritic pain, sputum, wheezing, other Cardiovascular: denies: chest pain, palpitations, orthopnea, paroxysmal noc. dyspnea, edema, light headedness, other Gastrointestinal: denies: nausea, vomiting, abdominal pain, diarrhea, constipation, melena, hematochezia, other - Medication Medications: Active Medications Generic Name Dose Route Start Last Admin Trade Name Freq PRN Reason Stop Dose Admin Acetaminophen 650 mg 06/10/19 22:27 06/11/19 20:28 Tylenol PO 650 mg Q6H PRN Administration Headache/Fever/Mild Pain (1-3) Ascorbic Acid 1,000 mg 06/12/19 09:00 06/14/19 08:49 Vitamin C PO 1,000 mg DAILY YULIET Administration Aspirin 325 mg 06/12/19 09:00 06/14/19 08:49 Ecotrin PO 325 mg DAILY YULIET Administration Atorvastatin Calcium 40 mg 06/11/19 21:00 06/13/19 20:29 Lipitor PO 40 mg HS YULIET Administration Carbamazepine 600 mg 06/13/19 21:00 06/13/19 20:30 Tegretol PO 600 mg QPM YULIET Administration Enoxaparin Sodium 40 mg 06/12/19 09:00 06/14/19 08:49 Lovenox SC 40 mg 0900 YULIET Administration Levetiracetam 1,500 mg 06/11/19 09:00 06/14/19 08:50 Keppra PO 1,500 mg BID YULIET Administration Pantoprazole Sodium 40 mg 06/11/19 09:00 06/14/19 08:50 Protonix PO 40 mg DAILY YULIET Administration Polyethylene Glycol 17 gm 06/11/19 09:00 06/14/19 08:49 Miralax PO 17 gm DAILY YULIET Administration Sodium Chloride 10 ml 06/10/19 22:05 06/12/19 21:25 Flush - Normal Saline IVF 10 ml PRN PRN Administration Saline Flush Zinc Sulfate 220 mg 06/12/19 09:00 06/14/19 08:50 Zinc Sulfate PO 220 mg DAILY YULIET Administration - Exam General Appearance: NAD, awake alert Heart: RRR, no murmur, no gallops, no rubs, normal peripheral pulses Respiratory: CTAB, no wheezes, no rales, no ronchi, normal chest expansion, no tachypnea, normal percussion Gastrointestinal: soft, non-tender, non-distended, normal bowel sounds, no palpable masses, no hepatomegaly, no splenomegaly, no bruit Extremities: no edema Extremities - other findings: LLE 2/5; LUE 1/5; otherwise unremarkable Psychiatric: normal affect, normal behavior, A&O x 3 Hosp A/P - Plan #covid pneumonia -loss of taste and smell for the past week -p/w lymphopenia and elevated LFTs -stable; new onset cough (06/13) -supportive measures #CVA -MRI aborted due to COVID -LLE slightly improved; almost able to lift leg off bed; LUE no improvement -continue aspirin and statin Considering patient feeling well, afebrile since admission, lympopenia resolved , and time of infection with COVID unknown, may be able to be discharged based on clinical criteria and remain in isolation unti 06/18; Will require PT s/p acute stroke
[2019-06-14] MEDS: carBAMazepine 200 MG TAB PO SCH (21:08)
[2019-06-14] MEDS: Atorvastatin Calcium 40 MG TAB PO SCH (21:09)
[2019-06-15 04:46] LABS: #Eosinphils 0.1 thou/uL (0.0-0.7); #Lymphocytes 1.3 thou/uL (1.20-3.40); #Monocytes 0.3 thou/uL (0.11-0.59); #Neutrophils 1.7 thou/uL (1.40-6.50); %Basophils 0.7 % (0.0-1.0); %Eosinophils 2.7 % (0.0-10.0); %Monocytes 9.4 % (0.0-10.0); %Neutrophils 49.2 % (42.0-75.0); Mean Corpuscular HGB CONC 31.7 g/dL (32.0-36.0); Mean Corpuscular Hemoglobin 29.1 pg (27.0-31.0); Mean Platelet Volume 8.8 fL (7.4-10.4); Platelet Count 171 thou/uL (130-400); RBC Distribution Width 11.7 % (11.5-14.5); Red Blood Cell (RBC) Count 5.16 mill/uL (4.70-6.10); White Blood Cell (WBC) Count 3.5 thou/uL (4.8-10.8)
[2019-06-15 05:02] LABS: Anion Gap 12 mmol/L (10-20); BUN (Urea Nitrogen) 14 mg/dL (8.9-20.6); CRP (Inflammatory) 0.62 mg/dL (= or < 0.5); Calc. Creatinine Clearance 171 mL/min (70-130); Calcium 8.7 mg/dL (7.8-10.44); Carbon Dioxide 24 mmol/L (22-29); Chloride 106 mmol/L (98-107); Estimated GFR-MDRD Greater than 90; Glucose 86 mg/dL (70-105); Sodium 138 mmol/L (136-145)
[2019-06-15] MEDS: Polyethylene Glycol 3350 17 GM Packet PO SCH (08:38)
[2019-06-15] MEDS: Enoxaparin Sodium 40 MG/0.4 ML SYRINGE SC SCH (08:43)
[2019-06-15] MEDS: Ascorbic Acid 500 mg Chewable Tablet PO SCH (08:43)
[2019-06-15] MEDS: Aspirin 325 mg Enteric Coated Tablet PO SCH (08:43)
[2019-06-15] MEDS: Zinc Sulfate 220 MG CAP PO SCH (08:43)
[2019-06-15] MEDS: levETIRAcetam 500 MG TAB PO SCH ×2 (08:44→21:24)
--- NOTE | 2019-06-15 14:03 | PDOC.HOSPP ---
- Subjective Encounter Date: 06/15/19 Encounter Time: 08:00 Subjective: no overnight events. This morning, feels better than yesterday, cough has resolved, but taste and smell remain absent. Has no complaints. Requests to avoid placement however after discussion regarding physical therapy need, will consider when discusses again with CM - Objective Vital Signs & Weight: Vital Signs (12 hours) Temp Pulse Resp BP BP Pulse Ox 06/15/19 11:50 97.5 F L 61 16 124/68 96 06/15/19 08:45 97.3 F L 54 L 14 97/61 97 06/15/19 04:00 48 L 18 99/57 L 97 Weight Weight 215 lb Most Recent Monitor Data Heart Rate from ECG 49 NIBP 111/69 NIBP BP-Mean 83 Respiration from ECG 16 SpO2 96 I&O: 06/14/19 06/15/19 06/16/19 06:59 06:59 06:59 Intake Total 850 297 Output Total 1425 Balance -575 297 Result Diagrams: 06/15/19 04:33 06/15/19 04:33 Hospitalist ROS - Review of Systems Constitutional: denies: fever, chills, sweats, weakness, malaise, other Respiratory: denies: cough, dry, shortness of breath, hemoptysis, SOB with excertion, pleuritic pain, sputum, wheezing, other Cardiovascular: denies: chest pain, palpitations, orthopnea, paroxysmal noc. dyspnea, edema, light headedness, other Gastrointestinal: denies: nausea, vomiting, abdominal pain, diarrhea, constipation, melena, hematochezia, other - Medication Medications: Active Medications Generic Name Dose Route Start Last Admin Trade Name Freq PRN Reason Stop Dose Admin Acetaminophen 650 mg 06/10/19 22:27 06/11/19 20:28 Tylenol PO 650 mg Q6H PRN Administration Headache/Fever/Mild Pain (1-3) Ascorbic Acid 1,000 mg 06/12/19 09:00 06/15/19 08:43 Vitamin C PO 1,000 mg DAILY YULIET Administration Aspirin 325 mg 06/12/19 09:00 06/15/19 08:43 Ecotrin PO 325 mg DAILY YULIET Administration Atorvastatin Calcium 40 mg 06/11/19 21:00 06/14/19 21:09 Lipitor PO 40 mg HS YULIET Administration Carbamazepine 600 mg 06/13/19 21:00 06/14/19 21:08 Tegretol PO 600 mg QPM YULIET Administration Enoxaparin Sodium 40 mg 06/12/19 09:00 06/15/19 08:43 Lovenox SC 40 mg 0900 YULIET Administration Levetiracetam 1,500 mg 06/11/19 09:00 06/15/19 08:44 Keppra PO 1,500 mg BID YULIET Administration Pantoprazole Sodium 40 mg 06/11/19 09:00 06/15/19 08:44 Protonix PO 40 mg DAILY YULIET Administration Polyethylene Glycol 17 gm 06/11/19 09:00 06/15/19 08:38 Miralax PO Not Given DAILY YULIET Sodium Chloride 10 ml 06/10/19 22:05 06/15/19 08:45 Flush - Normal Saline IVF 10 ml PRN PRN Administration Saline Flush Zinc Sulfate 220 mg 06/12/19 09:00 06/15/19 08:43 Zinc Sulfate PO 220 mg DAILY YULIET Administration - Exam General Appearance: NAD, awake alert Neck: no JVD Heart: RRR, no murmur, no gallops, no rubs Respiratory: CTAB, no wheezes, no rales, no ronchi Gastrointestinal: soft, non-tender, non-distended, normal bowel sounds Extremities: no edema Musculoskeletal - other findings: Left: LLE 02/09, LUE 02/09; no significant change Psychiatric: normal affect, normal behavior, A&O x 3 Hosp A/P - Plan #covid pneumonia -loss of taste and smell for the past week -p/w lymphopenia (resolved) and elevated LFTs (has history of HCV) -stable; new onset cough (06/13) -cough resolved (06/14); CRP barely elevated, ddimer normal -supportive measures #CVA -MRI aborted due to COVID -no change in strength in left upper and lower extremities -continue aspirin and statin Considering patient feeling well, afebrile since admission, lympopenia resolved , and time of infection with COVID unknown, may be able to be discharged based on clinical criteria and remain in isolation unti 06/18; Will require PT s/p acute stroke; patient states that conisdering need for PT, will reconsider placement as per CM recommendations
[2019-06-15] MEDS: carBAMazepine 200 MG TAB PO SCH (21:24)
[2019-06-15] MEDS: Atorvastatin Calcium 40 MG TAB PO SCH (21:24)
[2019-06-16] MEDS: levETIRAcetam 500 MG TAB PO SCH ×2 (08:05→20:39)
[2019-06-16] MEDS: Aspirin 325 mg Enteric Coated Tablet PO SCH (08:05)
[2019-06-16] MEDS: Enoxaparin Sodium 40 MG/0.4 ML SYRINGE SC SCH (08:06)
[2019-06-16] MEDS: Ascorbic Acid 500 mg Chewable Tablet PO SCH (08:06)
[2019-06-16] MEDS: Polyethylene Glycol 3350 17 GM Packet PO SCH (08:06)
[2019-06-16] MEDS: Zinc Sulfate 220 MG CAP PO SCH (08:06)
--- NOTE | 2019-06-16 18:16 | PDOC.HOSPP ---
- Subjective Encounter Date: 06/16/19 Encounter Time: 08:00 Subjective: no overnight events. Continues to feel well and has no complaints. Pending placement. Will require isolation for total of 10 days since positive covid test since not clear when symtpoms first appeared - Objective Vital Signs & Weight: Vital Signs (12 hours) Temp Pulse Resp BP Pulse Ox 06/16/19 16:20 98.0 F 56 L 10 L 135/79 97 06/16/19 12:53 98.0 F 56 L 15 132/71 97 06/16/19 08:13 96.7 F L 57 L 12 104/52 L 98 Weight Weight 215 lb Most Recent Monitor Data Heart Rate from ECG 49 NIBP 111/69 NIBP BP-Mean 83 Respiration from ECG 16 SpO2 96 I&O: 06/15/19 06/16/19 06/17/19 06:59 06:59 06:59 Intake Total 297 680 960 Output Total 325 400 Balance 297 355 560 Result Diagrams: 06/15/19 04:33 06/15/19 04:33 Hospitalist ROS - Review of Systems Constitutional: denies: fever, chills, sweats, weakness, malaise, other Respiratory: denies: cough, dry, shortness of breath, hemoptysis, SOB with excertion, pleuritic pain, sputum, wheezing, other Cardiovascular: denies: chest pain, palpitations, orthopnea, paroxysmal noc. dyspnea, edema, light headedness, other Gastrointestinal: denies: nausea, vomiting, abdominal pain, diarrhea, constipation, melena, hematochezia, other - Medication Medications: Active Medications Generic Name Dose Route Start Last Admin Trade Name Marilee PRN Reason Stop Dose Admin Acetaminophen 650 mg 06/10/19 22:27 06/11/19 20:28 Tylenol PO 650 mg Q6H PRN Administration Headache/Fever/Mild Pain (1-3) Ascorbic Acid 1,000 mg 06/12/19 09:00 06/16/19 08:06 Vitamin C PO 1,000 mg DAILY YULIET Administration Aspirin 325 mg 06/12/19 09:00 06/16/19 08:05 Ecotrin PO 325 mg DAILY YULIET Administration Atorvastatin Calcium 40 mg 06/11/19 21:00 06/15/19 21:24 Lipitor PO 40 mg HS YULIET Administration Carbamazepine 600 mg 06/13/19 21:00 06/15/19 21:24 Tegretol PO 600 mg QPM YULIET Administration Enoxaparin Sodium 40 mg 06/12/19 09:00 06/16/19 08:06 Lovenox SC 40 mg 0900 YULIET Administration Levetiracetam 1,500 mg 06/11/19 09:00 06/16/19 08:05 Keppra PO 1,500 mg BID YULIET Administration Pantoprazole Sodium 40 mg 06/11/19 09:00 06/16/19 08:06 Protonix PO 40 mg DAILY YULIET Administration Polyethylene Glycol 17 gm 06/11/19 09:00 06/16/19 08:06 Miralax PO Not Given DAILY YULIET Sodium Chloride 10 ml 06/10/19 22:05 06/15/19 08:45 Flush - Normal Saline IVF 10 ml PRN PRN Administration Saline Flush Zinc Sulfate 220 mg 06/12/19 09:00 06/16/19 08:06 Zinc Sulfate PO 220 mg DAILY YULIET Administration - Exam General Appearance: NAD, awake alert Heart: RRR, no murmur, no gallops, no rubs, normal peripheral pulses Respiratory: CTAB, no wheezes, no rales, no ronchi, normal chest expansion, no tachypnea, normal percussion Gastrointestinal: soft, non-tender, non-distended, normal bowel sounds, no palpable masses, no hepatomegaly, no splenomegaly, no bruit Extremities: no edema Neurological - other findings: unchanged Hosp A/P - Plan #covid pneumonia -loss of taste and smell for the past week -p/w lymphopenia (resolved) and elevated LFTs (has history of HCV) -stable; new onset cough (06/13) -cough resolved (06/14); CRP barely elevated, ddimer normal -supportive measures #CVA -MRI aborted due to COVID -no change in strength in left upper and lower extremities -continue aspirin and statin Considering patient feeling well, afebrile since admission, lympopenia resolved , and time of infection with COVID unknown, may be able to be discharged based on clinical criteria and remain in isolation unti 06/18; Will require PT s/p acute stroke; patient states that conisdering need for PT, will reconsider placement as per CM recommendations
[2019-06-16] MEDS: carBAMazepine 200 MG TAB PO SCH (20:39)
[2019-06-16] MEDS: Atorvastatin Calcium 40 MG TAB PO SCH (20:39)
[2019-06-17 06:40] VITALS: BMI 26.9
[2019-06-17] MEDS: Polyethylene Glycol 3350 17 GM Packet PO SCH ×2 (08:35→09:21)
[2019-06-17] MEDS: Enoxaparin Sodium 40 MG/0.4 ML SYRINGE SC SCH (08:35)
[2019-06-17] MEDS: Aspirin 325 mg Enteric Coated Tablet PO SCH (08:35)
[2019-06-17] MEDS: Zinc Sulfate 220 MG CAP PO SCH (08:35)
[2019-06-17] MEDS: Ascorbic Acid 500 mg Chewable Tablet PO SCH (08:36)
[2019-06-17] MEDS: levETIRAcetam 500 MG TAB PO SCH ×2 (08:36→20:54)
--- NOTE | 2019-06-17 12:57 | PQF ---
GUSTAVO GARYALEXANDRENoemi, SONAL [id number] CLINICAL DOCUMENTATION IMPROVEMENT CLARIFICATION FORM: ICD-10 Updated PLEASE DO AN ADDENDUM TO THE PROGRESS NOTE WITH ANY DOCUMENTATION UPDATES OR ADDITIONS AND CARRY THROUGH TO DC SUMMARY. THANK YOU. DATE: 06/17/2019 ATTN: Dr. Wilhelm Please exercise your independent, professional judgment in responding to the clarification form. Clinical indicators are provided on the bottom of this form for your review Please check appropriate box(es): COVID 19 virus with associated manifestations: (please check all that apply) [ x ] Pneumonia [ ] Sepsis Viral [ ] Other diagnosis [ ] Unable to determine In addition, please specify: Present on Admission (POA): [ x ] Yes [ ] No [ ] Unable to determine For continuity of documentation, please document condition throughout progress notes and discharge summary. Thank You. Clinical Indicators - Signs / Symptoms / Labs with Results and Location in Medical Record * Lab: WBC CRP 06/09 - 06/11 3.4 - 3.9 06/12 4 06/14 3.5 0.62 * CXR ([facility]R) 06/09: Impression: No acute intrathoracic abnormality. * H&P 06/09 ([facility]): Viremia, fever, chills, body aches- covid exposure at unit , suspect will be covid positive but test is pending. * PN 06/11 ([facility]): COVID-19 without pneumonia * PN 06/11 ([facility]): COVID-19 deras he is asymptomatic, will give vitamen C and zinc sulfate * PN 06/13 ([facility]): Covid pneumonia ... loss of taste and smell for the past week ... p/w lymphopenia and elevated LFTs ...stable; new onset cough(06/13) * PN 06/13 ([facility]): ... Cough resolved (06/14); CRP barely elevated, ddimer normal ... afebrile since admission, lympopenia resolved, and time of infection with COVID unknown ... Risk Factors with Results and Location in Medical Record * H&P 06/09 ([facility]): ... Covid exposure at unit. * PN 06/11 ([facility]): COVID-19 positive Treatments with Results and Location in Medical Record * ED 06/10: CXR, COVID-19 test * ICU admission ([facility]) * MAR ([facility]): NS IV 50mls/hr IV 06/09-06/10, Zinc sulfate daily 06/11-06/16, Vitamin C 06/11-06/16 * Pulmonology Consult 06/10 ([facility]): Respiratory Isolation Thank you, Renetta (This form is maintained as a part of the permanent medical record) 2014 [employer]. All Rights Reserved Renetta Kelley RN, CDS [email or web address] cell phone: [phone] [facility]
[2019-06-17] MEDS: Atorvastatin Calcium 40 MG TAB PO SCH (20:53)
[2019-06-17] MEDS: carBAMazepine 200 MG TAB PO SCH (20:54)
--- NOTE | 2019-06-17 23:52 | PDOC.HOSPP ---
- Subjective Encounter Date: 06/17/19 Encounter Time: 08:00 Subjective: no overnight events and has no new complaints. Pending placement - Objective Vital Signs & Weight: Vital Signs (12 hours) Temp Pulse Resp BP Pulse Ox 06/17/19 21:10 97.9 F 58 L 16 140/81 95 06/17/19 15:40 97.0 F L 67 16 122/76 95 06/17/19 12:00 97.5 F L 58 L 16 136/67 96 Weight Weight 215 lb 3.2 oz Most Recent Monitor Data Heart Rate from ECG 49 NIBP 111/69 NIBP BP-Mean 83 Respiration from ECG 16 SpO2 96 I&O: 06/16/19 06/17/19 06/18/19 06:59 06:59 06:59 Intake Total 680 1440 460 Output Total 325 800 900 Balance 355 640 -440 Result Diagrams: 06/15/19 04:33 06/15/19 04:33 Hospitalist ROS - Review of Systems Constitutional: denies: fever, chills, sweats, weakness, malaise, other Respiratory: denies: cough, dry, shortness of breath, hemoptysis, SOB with excertion, pleuritic pain, sputum, wheezing, other Cardiovascular: denies: chest pain, palpitations, orthopnea, paroxysmal noc. dyspnea, edema, light headedness, other Gastrointestinal: denies: nausea, vomiting, abdominal pain, diarrhea, constipation, melena, hematochezia, other - Medication Medications: Active Medications Generic Name Dose Route Start Last Admin Trade Name Freq PRN Reason Stop Dose Admin Acetaminophen 650 mg 06/10/19 22:27 06/11/19 20:28 Tylenol PO 650 mg Q6H PRN Administration Headache/Fever/Mild Pain (1-3) Ascorbic Acid 1,000 mg 06/12/19 09:00 06/17/19 08:36 Vitamin C PO 1,000 mg DAILY YULIET Administration Aspirin 325 mg 06/12/19 09:00 06/17/19 08:35 Ecotrin PO 325 mg DAILY YULIET Administration Atorvastatin Calcium 40 mg 06/11/19 21:00 06/17/19 20:53 Lipitor PO 40 mg HS YULIET Administration Carbamazepine 600 mg 06/13/19 21:00 06/17/19 20:54 Tegretol PO 600 mg QPM YULIET Administration Enoxaparin Sodium 40 mg 06/12/19 09:00 06/17/19 08:35 Lovenox SC 40 mg 0900 YULIET Administration Levetiracetam 1,500 mg 06/11/19 09:00 06/17/19 20:54 Keppra PO 1,500 mg BID YULIET Administration Pantoprazole Sodium 40 mg 06/11/19 09:00 06/17/19 08:36 Protonix PO 40 mg DAILY YULIET Administration Polyethylene Glycol 17 gm 06/11/19 09:00 06/17/19 09:21 Miralax PO Not Given DAILY YULIET Sodium Chloride 10 ml 06/10/19 22:05 06/15/19 08:45 Flush - Normal Saline IVF 10 ml PRN PRN Administration Saline Flush Zinc Sulfate 220 mg 06/12/19 09:00 06/17/19 08:35 Zinc Sulfate PO 220 mg DAILY YULIET Administration - Exam General Appearance: negative: NAD, awake alert, ill appearing Heart: RRR, no murmur, no gallops, no rubs, normal peripheral pulses Respiratory: CTAB, no wheezes, no rales, no ronchi, normal chest expansion, no tachypnea, normal percussion Gastrointestinal: soft, non-tender, non-distended, normal bowel sounds, no palpable masses, no hepatomegaly, no splenomegaly, no bruit Hosp A/P - Plan #covid pneumonia -loss of taste and smell for the past week -p/w lymphopenia (resolved) and elevated LFTs (has history of HCV) -stable; new onset cough (06/13) -cough resolved (06/14); CRP barely elevated, ddimer normal -supportive measures #CVA -MRI aborted due to COVID -no change in strength in left upper and lower extremities -continue aspirin and statin Considering patient feeling well, afebrile since admission, lympopenia resolved , and time of infection with COVID unknown, may be able to be discharged based on clinical criteria and remain in isolation unti 06/18; Will require PT s/p acute stroke
[2019-06-18] MEDS: levETIRAcetam 500 MG TAB PO SCH ×2 (09:59→20:05)
[2019-06-18] MEDS: Polyethylene Glycol 3350 17 GM Packet PO SCH ×2 (10:00→10:19)
[2019-06-18] MEDS: Ascorbic Acid 500 mg Chewable Tablet PO SCH (10:00)
[2019-06-18] MEDS: Zinc Sulfate 220 MG CAP PO SCH (10:00)
[2019-06-18] MEDS: Enoxaparin Sodium 40 MG/0.4 ML SYRINGE SC SCH (10:00)
[2019-06-18] MEDS: Aspirin 325 mg Enteric Coated Tablet PO SCH (10:00)
[2019-06-18] MEDS: Atorvastatin Calcium 40 MG TAB PO SCH (20:05)
[2019-06-18] MEDS: carBAMazepine 200 MG TAB PO SCH (20:06)
--- NOTE | 2019-06-18 20:48 | PDOC.HOSPP ---
- Subjective Encounter Date: 06/18/19 Encounter Time: 09:00 Subjective: no overnight events. this morning feel well and has no complaints. - Objective Vital Signs & Weight: Vital Signs (12 hours) Temp Pulse Resp BP Pulse Ox 06/18/19 15:00 97.3 F L 59 L 16 128/76 97 06/18/19 10:15 97.9 F 64 14 127/75 96 Weight Weight 215 lb 4.8 oz Most Recent Monitor Data Heart Rate from ECG 49 NIBP 111/69 NIBP BP-Mean 83 Respiration from ECG 16 SpO2 96 I&O: 06/17/19 06/18/19 06/19/19 06:59 06:59 06:59 Intake Total 1440 660 480 Output Total 800 1700 Balance 640 -1040 480 Result Diagrams: 06/15/19 04:33 06/15/19 04:33 Hospitalist ROS - Review of Systems Constitutional: denies: fever, chills, sweats, weakness, malaise, other Respiratory: denies: cough, dry, shortness of breath, hemoptysis, SOB with excertion, pleuritic pain, sputum, wheezing, other Cardiovascular: denies: chest pain, palpitations, orthopnea, paroxysmal noc. dyspnea, edema, light headedness, other Gastrointestinal: denies: nausea, vomiting, abdominal pain, diarrhea, constipation, melena, hematochezia, other Genitourinary: denies: dysuria, frequency, incontinence, hematuria, retention, other - Medication Medications: Active Medications Generic Name Dose Route Start Last Admin Trade Name Freq PRN Reason Stop Dose Admin Acetaminophen 650 mg 06/10/19 22:27 06/11/19 20:28 Tylenol PO 650 mg Q6H PRN Administration Headache/Fever/Mild Pain (1-3) Ascorbic Acid 1,000 mg 06/12/19 09:00 06/18/19 10:00 Vitamin C PO 1,000 mg DAILY YULIET Administration Aspirin 325 mg 06/12/19 09:00 06/18/19 10:00 Ecotrin PO 325 mg DAILY YULIET Administration Atorvastatin Calcium 40 mg 06/11/19 21:00 06/18/19 20:05 Lipitor PO 40 mg HS YULIET Administration Carbamazepine 600 mg 06/13/19 21:00 06/18/19 20:06 Tegretol PO 600 mg QPM YULIET Administration Enoxaparin Sodium 40 mg 05/07/20 09:00 06/18/19 10:00 Lovenox SC 40 mg 0900 YULIET Administration Levetiracetam 1,500 mg 06/11/19 09:00 06/18/19 20:05 Keppra PO 1,500 mg BID YULIET Administration Pantoprazole Sodium 40 mg 06/11/19 09:00 06/18/19 10:00 Protonix PO 40 mg DAILY YULIET Administration Polyethylene Glycol 17 gm 06/11/19 09:00 06/18/19 10:19 Miralax PO Not Given DAILY YULIET Sodium Chloride 10 ml 06/10/19 22:05 06/15/19 08:45 Flush - Normal Saline IVF 10 ml PRN PRN Administration Saline Flush Zinc Sulfate 220 mg 06/12/19 09:00 06/18/19 10:00 Zinc Sulfate PO 220 mg DAILY YULIET Administration - Exam General Appearance: NAD, awake alert Heart: RRR, no murmur, no gallops, no rubs, normal peripheral pulses Respiratory: CTAB, no wheezes, no rales, no ronchi, normal chest expansion, no tachypnea, normal percussion Gastrointestinal: soft, non-tender, non-distended, normal bowel sounds, no palpable masses, no hepatomegaly, no splenomegaly, no bruit Psychiatric: normal affect, normal behavior, A&O x 3 Hosp A/P - Plan #covid pneumonia -loss of taste and smell for the past week -p/w lymphopenia (resolved) and elevated LFTs (has history of HCV) -stable; new onset cough (06/13) -cough resolved (06/14); CRP barely elevated, ddimer normal -supportive measures #CVA -MRI aborted due to COVID -no change in strength in left upper and lower extremities -continue aspirin and statin Considering patient feeling well, afebrile since admission, lympopenia resolved , and time of infection with COVID unknown, may be able to be discharged based on clinical criteria and remain in isolation unti 06/18; Will require PT s/p acute stroke
[2019-06-19] MEDS: Enoxaparin Sodium 40 MG/0.4 ML SYRINGE SC SCH (09:12)
[2019-06-19] MEDS: Aspirin 325 mg Enteric Coated Tablet PO SCH (09:13)
[2019-06-19] MEDS: Polyethylene Glycol 3350 17 GM Packet PO SCH (09:13)
[2019-06-19] MEDS: Ascorbic Acid 500 mg Chewable Tablet PO SCH (09:13)
[2019-06-19] MEDS: levETIRAcetam 500 MG TAB PO SCH ×2 (09:13→21:06)
[2019-06-19] MEDS: Zinc Sulfate 220 MG CAP PO SCH (09:18)
--- NOTE | 2019-06-19 15:48 | EKG ---
Test Reason : Blood Pressure : / mmHG Vent. Rate : 066 BPM Atrial Rate : 066 BPM P-R Int : 160 ms QRS Dur : 096 ms QT Int : 376 ms P-R-T Axes : 049 -14 007 degrees QTc Int : 394 ms Normal sinus rhythm Moderate voltage criteria for LVH, may be normal variant Cannot rule out Septal infarct , age undetermined Abnormal ECG Confirmed by BARAK KATE DO ([id number]), publishing editor DARION MCCALLUM ([id number] on 06/19/2019 3:47:37 PM Referred By: Confirmed By:BARAK KATE DO
[2019-06-19] MEDS: Atorvastatin Calcium 40 MG TAB PO SCH (21:05)
[2019-06-19] MEDS: carBAMazepine 200 MG TAB PO SCH (21:06)
--- NOTE | 2019-06-19 22:25 | PDOC.HOSPP ---
- Subjective Encounter Date: 06/19/19 Encounter Time: 09:00 Subjective: no overnight events no complaints pending placement - Objective Vital Signs & Weight: Vital Signs (12 hours) Temp Pulse Resp BP Pulse Ox 06/19/19 16:52 98.4 F 60 18 119/74 97 06/19/19 12:22 98.5 F 61 18 121/68 96 Weight Admit Weight 217 lb 9.54 oz Weight 215 lb 4.8 oz Most Recent Monitor Data Heart Rate from ECG 49 NIBP 111/69 NIBP BP-Mean 83 Respiration from ECG 16 SpO2 96 I&O: 06/18/19 06/19/19 06/20/19 06:59 06:59 06:59 Intake Total 663 439 0547 Output Total 6411 396 4108 Balance -1040 30 100 Result Diagrams: 06/15/19 04:33 06/15/19 04:33 Hospitalist ROS - Review of Systems Constitutional: denies: fever, chills, sweats, weakness, malaise, other Respiratory: denies: cough, dry, shortness of breath, hemoptysis, SOB with excertion, pleuritic pain, sputum, wheezing, other Cardiovascular: denies: chest pain, palpitations, orthopnea, paroxysmal noc. dyspnea, edema, light headedness, other Gastrointestinal: denies: nausea, vomiting, abdominal pain, diarrhea, constipation, melena, hematochezia, other - Medication Medications: Active Medications Generic Name Dose Route Start Last Admin Trade Name Freq PRN Reason Stop Dose Admin Acetaminophen 650 mg 06/10/19 22:27 06/11/19 20:28 Tylenol PO 650 mg Q6H PRN Administration Headache/Fever/Mild Pain (1-3) Ascorbic Acid 1,000 mg 06/12/19 09:00 06/19/19 09:13 Vitamin C PO 1,000 mg DAILY YULIET Administration Aspirin 325 mg 06/12/19 09:00 06/19/19 09:13 Ecotrin PO 325 mg DAILY YULIET Administration Atorvastatin Calcium 40 mg 06/11/19 21:00 06/19/19 21:05 Lipitor PO 40 mg HS YULIET Administration Carbamazepine 600 mg 06/13/19 21:00 06/19/19 21:06 Tegretol PO 600 mg QPM YULIET Administration Enoxaparin Sodium 40 mg 06/12/19 09:00 06/19/19 09:12 Lovenox SC 40 mg 0900 YULIET Administration Levetiracetam 1,500 mg 06/11/19 09:00 06/19/19 21:06 Keppra PO 1,500 mg BID YULIET Administration Pantoprazole Sodium 40 mg 06/11/19 09:00 06/19/19 09:13 Protonix PO 40 mg DAILY YULIET Administration Polyethylene Glycol 17 gm 06/11/19 09:00 06/19/19 09:13 Miralax PO 17 gm DAILY YULIET Administration Sodium Chloride 10 ml 06/10/19 22:05 06/15/19 08:45 Flush - Normal Saline IVF 10 ml PRN PRN Administration Saline Flush Zinc Sulfate 220 mg 06/12/19 09:00 06/19/19 09:18 Zinc Sulfate PO 220 mg DAILY YULIET Administration - Exam General Appearance: NAD, awake alert Neck: supple, symmetric, no JVD, no thyromegaly, no lymphadenopathy, no carotid bruit Heart: RRR, no murmur, no gallops, no rubs, normal peripheral pulses Respiratory: CTAB, no wheezes, no rales, no ronchi, normal chest expansion, no tachypnea, normal percussion Gastrointestinal: soft, non-tender, non-distended, normal bowel sounds, no palpable masses, no hepatomegaly, no splenomegaly, no bruit Hosp A/P - Plan #covid pneumonia -loss of taste and smell for the past week -p/w lymphopenia (resolved) and elevated LFTs (has history of HCV) -stable; new onset cough (06/13) -cough resolved (06/14); CRP barely elevated, ddimer normal -no fever for 3 days and more than 10 days since onset of symptoms; therefore isolation can be discontinued. #CVA -MRI aborted due to COVID -no change in strength in left upper and lower extremities -continue aspirin and statin As of PM, bed available awaiting nurse to nurse signout. Will be dced 06/19
--- NOTE | 2019-06-20 00:51 | CON ---
DATE OF CONSULTATION: 06/19/2019 REASON FOR CONSULTATION: Evaluate COVID-19 patient for discharge planning. HISTORY OF PRESENT ILLNESS: A 39-year-old who was at the [facility] incarcerated and had onset of cough, anosmia, fever and body aches around 06/06 to 06/07. He had some productive coughing spells and subsequently developed left-sided weakness and fell to the ground. He was brought to the [facility] and then sent to the [facility]. PHYSICAL EXAMINATION: VITAL SIGNS: Initial findings, BP 120/70, pulse 77, respirations 16, temperature 98.4, O2 saturation 96, other temperatures taken in the emergency room were normal. He did not appear in distress. His left eyelid in the left side of the face was weak. He could not lift his left eyelid or forehead. He cannot smile or puff his lips on the left side. There was a left hemiparesis as well. LABORATORY DATA: Other findings on arrival white cell count is 3.9. Lymphocytes were low at 1.0. INR 1.0. Sodium was 137, creatinine 0.89. AST 83, ALT 189, alkaline phosphatase 62, albumin 4.2, and COVID-19 was detected on 06/09. The patient had a [facility] [place] [facility] [place] [facility] [place] angiogram with contrast and it showed normal findings and chest x-ray with no acute intrathoracic abnormality noted. Brain CT with no acute intracranial process noted. The patient has been managed with Zinc, promethazine, pantoprazole, ondansetron, loratadine, Keppra, labetalol, hydralazine, enoxaparin, prophylactic dose, Tegretol, atorvastatin, ascorbic acid. He remains with hemiparesis, left side. The facial palsy has improved. He has quite pronounced anosmia, but no respiratory symptoms otherwise. He has remained afebrile through the hospital stay. Denies any headaches. No visual symptoms, sore throat odynophagia, dysphagia. No choking spells. No dyspnea. No chest pain. No abdominal pain or diarrhea. No genitourinary symptoms. PAST MEDICAL HISTORY: Hepatitis C, prior TIAs, seizure activity. ALLERGIES: NONE. MEDICATIONS: Had been reviewed above. He is incarcerated at [facility]. Former smoker. FAMILY HISTORY: Noncontributory. PHYSICAL EXAMINATION: VITAL SIGNS: He has been afebrile since admission. Other vital signs are normal. O2 saturations are normal, 97% on room air. Does not appear in distress. HEENT: He is not coughing. His ocular movements are conjugate. Oral cavity normal. SKIN: Normal. LUNGS: Clear to auscultation and percussion. CARDIOVASCULAR: S1-S2, regular rate. ABDOMEN: Soft, not distended or tender. EXTREMITIES: Left side with 2/5 strength. Right side, normal strength. NEUROLOGIC: Speech is normal. Orientation normal. ASSESSMENT: 1. History of transient ischemic attacks. 2. Seizure activity. 3. Now with anosmia. 4. COVID-19 infection. This is the 10th or 11th day of onset of illness. He has been an afebrile now for quite a few days. It appears that loss of smell may be a predictor of a milder course of Severe Acute Respiratory [id number] infection. He does have this cerebrovascular accident, but negative angiogram, so I do not know what the substrate that is responsible for the physical findings on the clinical examination. The criteria to allow discontinuation of isolation are based on either resolution of symptoms plus time since the onset of symptoms or test- based. In his case, he meets resolution/time duration to discontinue isolation protocol. The test criteria for patient's would be 2 separate nucleic acid tests 24 hours apart. I do not think it is needed in his case since he is not immunosuppressed, so I recommend transferring patient back to the unit and precautions discontinued. Typically loss of smell might indicate a robust immune response with localization of the viral replication to the nasal passages, but limited effects elsewhere in the body. Job ID: [id number] [facility]
[2019-06-20] MEDS: Enoxaparin Sodium 40 MG/0.4 ML SYRINGE SC SCH (10:17)
[2019-06-20] MEDS: Polyethylene Glycol 3350 17 GM Packet PO SCH (10:17)
[2019-06-20] MEDS: levETIRAcetam 500 MG TAB PO SCH ×2 (10:18→20:06)
[2019-06-20] MEDS: Ascorbic Acid 500 mg Chewable Tablet PO SCH (10:18)
[2019-06-20] MEDS: Aspirin 325 mg Enteric Coated Tablet PO SCH (10:18)
[2019-06-20] MEDS: Zinc Sulfate 220 MG CAP PO SCH (10:18)
[2019-06-20 18:06] VITALS: TEMP 98.2
[2019-06-20] MEDS: carBAMazepine 200 MG TAB PO SCH (20:05)
[2019-06-20] MEDS: Atorvastatin Calcium 40 MG TAB PO SCH (20:06)
[2019-06-20 20:12] VITALS: BP 128/68
== END 2019-06-20 21:11 | DRG 61 ==
LOC: ERS 19:43 → CCU 21:33 → EEVIPCON 21:33 → 2SW 06-12 00:30
PROVIDERS: ADMIT Internal Medicine; ATTEND Internal Medicine
PROC: 3E04317 Introduction of Other Thrombolytic into Central Vein, Percutaneous Approach (ICD-10-PCS; principal; 2019-06-10)
PROC: 8E0ZXY6 Isolation (ICD-10-PCS; 2019-06-10)
DX: I63.511 Cerebral infarction due to unspecified occlusion or stenosis of right middle cerebral artery (principal); U07.1 COVID-19; J12.89 Other viral pneumonia; G81.94 Hemiplegia, unspecified affecting left nondominant side; R79.89 Other specified abnormal findings of blood chemistry; R29.706 NIHSS score 6; R29.810 Facial weakness; G40.909 Epilepsy, unspecified, not intractable, without status epilepticus; R40.2362 Coma scale, best motor response, obeys commands, at arrival to emergency department; R40.2142 Coma scale, eyes open, spontaneous, at arrival to emergency department; R40.2252 Coma scale, best verbal response, oriented, at arrival to emergency department; B18.2 Chronic viral hepatitis C; R43.0 Anosmia; Z86.73 Personal history of transient ischemic attack (TIA), and cerebral infarction without residual deficits; Z79.82 Long term (current) use of aspirin; Z79.899 Other long term (current) drug therapy
CPT/HCPCS: 36415; 36416; 70450; 70496; 70498; 71045; 80048; 80053; 80061; 82553; 83036; 83605; 83735; 84484; 85025; 85379; 85610; 85730; 86140; 87081; 87430; 87635; 87804; 93005; 96361; 96365; 96376; J1650; J2997; Q9967; U0003